=== PATIENT | female | born 1960 | race Caucasian/White ===

== ENCOUNTER → 2018-01-17 | Day surgery (SDC) | payer BC ==
[2018-01-15 10:12] LABS: BASOPHILS # (AUTO) 0.1 (0.0-0.1); BASOPHILS % 0.9 % (0.0-1.0); EOSINOPHILS # (AUTO) 0.3 (0.0-0.4); EOSINOPHILS % 4.6 % (0.0-6.0); HEMOGLOBIN 13.3 g/dL (12.0-16.0); LYMPHOCYTES # (AUTO) 1.4 (1.0-3.2); LYMPHOCYTES % 18.4 % (18.0-39.1); MEAN CORPUSCULAR HEMOGLOBIN 25.6 pg (28-32); MEAN CORPUSCULAR HGB CONC 32.4 g/dL (31-35); MEAN CORPUSCULAR VOLUME 78.8 fL (81-99); MONOCYTES # (AUTO) 0.9 (0.2-0.8); MONOCYTES % 11.4 % (4.4-11.3); NEUTROPHILS # (AUTO) 4.7 (2.1-6.9); NEUTROPHILS % 63.6 % (38.7-80.0); PLATELET COUNT 185 x10e3/uL (140-360); RED CELL DISTRIBUTION WIDTH 13.9 % (11.7-14.4)
[2018-01-15 10:33] LABS: ANION GAP 13.3 mmol/L (8-16); BLOOD UREA NITROGEN 16 mg/dL (7-26); BUN/CREATININE RATIO 19 (6-25); CALCIUM 9.5 mg/dL (8.4-10.2); CARBON DIOXIDE 25 mmol/L (22-29); CHLORIDE 109 mmol/L (98-107); CREATININE, SERUM 0.85 mg/dL (0.57-1.11); EST GLOMERULAR FILTRATION RATE > 60 ML/MIN (60-); GLUCOSE 81 mg/dL (74-118); POTASSIUM 4.3 mmol/L (3.5-5.1); SODIUM 143 mmol/L (136-145)
--- NOTE | 2018-01-15 11:32 | Diagnostic Imaging Report ---
PROCEDURE:CHEST 2 VIEWS TECHNIQUE:PA and lateral chest INDICATION:Preoperative evaluation for foot surgery. COMPARISON:[facility], , CHEST 2 VIEWS, 12/22/2009, 11:30. FINDINGS: Symmetric hyperinflation. Lungs otherwise clear. No pleural effusions. Normal cardiac mediastinal silhouette for technique, with mild elevation of the esha. Intact skeleton. CONCLUSION: Hyperinflation suggesting air trapping from COPD or large inspiration effort. No interval change from December 2009. Dictated by: Dustin Hudson M.D. on 01/15/2018 at 11:34 Electronically approved by: Dustin Hudson M.D. on 01/15/2018 at 11:34
[~2018-01-17] MED LIST: ADVIL PO; BUPIVACAINE HCL 0.5% INJ 30 ML VIAL INJ ONE; CEFAZOLIN SOD 2 GM/D5W 50ML 50 ML IV ONE; DEXAMETHASONE SOD PHOS INJ 4 MG/ML VIAL ONE; ESTRADIOL PO; FENTANYL CITRATE/PF 100MCG/2 ML INJ ONE; HYDROCORTISONE30 GM TOP; LIDOCAINE HCL 2% LOCAL INJ 5 ML SDV VIAL INJ ONE; MEDROXYPROGESTERONE PO; METOCLOPRAMIDE HCL 10 MG/2ML VIAL ONE; MIDAZOLAM HCL 2 MG/2 ML VIAL ONE; MONTELUKAST SOD10 MG PO; MUPIROCIN 2% OINT 22 GM TUBE ONE; ONDANSETRON HCL 4 MG ORAL DISINTEGRATING TAB ONE; ONDANSETRON HCL INJ 2 MG/ML VIAL ONE; PROPOFOL IV EMULSION 10 MG/ML 20 ML VIAL ONE; SEVOFLURANE INHAL SOLN 250 ML PEN BTL ONE
--- OUTSIDE RECORDS SUMMARY | 2018-01-17 07:30 | XMS REPORT | Clinical Summary ---
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 Disp. Refills Start End Date Status Date estradiol (ESTRACE) 1 MG Take 1 mg by mouth once 12 11/29/19 Active tablet daily. 17 medroxyPROGESTERone Take 2.5 mg by mouth once 12 11/29/19 Active (PROVERA) 2.5 MG tablet daily. 17 PREMPRO 0.45-1.5 mg per Take 1 tablet by mouth 5 11/09/19 08/22/20 Discontin tablet once daily. 17 17 ued montelukast (SINGULAIR) Take 10 mg by mouth every 1 12/01/19 Discontin 10 mg tablet evening. 17 17 ued Active Problems No known active problems Encounters Date Type Specialty Care Team Description 11/22/2017 Documentation Sports Medicine Pollo Huerta MD 11/01/2017 Orders Only Sports Medicine Luisa Francis MA Tendinopathy of right rotator cuff (Primary Dx); Disorder of bursa 08/29/2017 Orders Only Orthopedic Surgery Pollo Huerta MD Tendinopathy of rotator cuff, right (Primary Dx); Disorder of bursa 08/29/2017 Transcribe Access Armin Zuniga MD Nontoxic uninodular Orders goiter (Primary Dx) 08/22/2017 Hospital Radiology Armin Zuniga MD Intracranial swelling; Encounter Scooby Cervantes MD Neck mass 08/22/2017 Ancillary Access Armin Zuniga MD Intracranial swelling; Orders Neck mass 08/19/2017 Hospital Radiology Armin Zuniga MD Encounter 08/19/2017 Transcribe Access Armin Zuniga MD Intracranial swelling Orders (Primary Dx); Neck mass 08/19/2017 Ancillary Radiology Armin Zuniga MD Orders 08/19/2017 Ancillary Radiology Armin Zuniga MD Orders after 01/16/2017 Family History Medical History Relation Name Comments Heart disease Mother Leukemia Mother Relation Name Status Comments Mother Social History Tobacco Use Types Packs/Day Years Used Date Never Smoker Alcohol Use Drinks/Week oz/Week Comments Yes 4 Standard 2.4 per year drinks or equivalent Sex Assigned at Date Recorded Not on file Last Filed Vital Signs Vital Sign Reading Time Taken Blood Pressure 132/61 08/22/2017 9:32 AM [facility] Pulse 65 08/22/2017 9:32 AM [facility] Temperature 36.1 C (97 F) 08/22/2017 9:32 AM [facility] Respiratory Rate 18 08/22/2017 9:32 AM [facility] Oxygen Saturation 97% 08/22/2017 9:32 AM [facility] Inhaled Oxygen - - Concentration Weight - - Height - - Body Mass Index - - Plan of Treatment Date Type Specialty Care Team Description 02/07/2018 Appointment Radiology Armin Zuniga MD [address] [place] [address] [address] [place] [address] Health Maintenance Due Date Last Done Comments CERVICAL CANCER SCREENING 01/12/1981 BREAST CANCER SCREENING 01/12/2010 COLON CANCER SCREENING 01/12/2010 SHINGRIX VACCINE (#1) 01/12/2010 INFLUENZA VACCINE 04/02/2018 Results * Cytology (non-gynecological) request (08/22/2017 9:33 AM) Component Value Ref Range Cytology See link below for PDF Lab Report (non-gynecological) report Result status This is Final Report to [id number] Specimen Performing Laboratory [facility] DEPARTMENT OF PATHOLOGY AND GENOMIC MEDICINE [address] [place] [address] * US Thyroid Biopsy (08/22/2017 9:31 AM) Specimen Performing Laboratory [facility] [address] [place] [id number] Narrative US THYROID BIOPSY R22.0 Localized swellingmass and lumphead, R22.1 Localized swelling mass and lumpneck, R22.0 R22.1 STAFF:Dr. Maxime MD ANESTHESIA: Local, 1% lidocaine. FINDINGS: The risk, benefit and alternative were explained to the patient and informed consent was obtained. The patient was placed in the supine position prepped and draped in the usual sterile fashion. All elements of maximal sterile barrier technique were followed. Under ultrasound guidance, the right thyroid nodule was localized. Local anesthetic was applied using 1%lidocaine. The nodule measured 24 mm mm in maximum dimensions and appears heterogeneous. Fine needle aspiration using 25- gauge needle was performed under ultrasound guidance. 4 passes were made and reviewed by the pathologist. The patient tolerated the procedure well and discharged in stable condition. SPECIMEN: 4 FNA passes, reviewed by pathologist. COMPLICATIONS: None. Estimated blood loss: Minimal. IMPRESSION: Status post ultrasound-guided biopsy of right thyroid nodule as described above. 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 Maxime MD ANESTHESIA: Local, 1% lidocaine. FINDINGS: The risk, benefit and alternative were explained to the patient and informed consent was obtained. The patient was placed in the supine position prepped and draped in the usual sterile fashion. All elements of maximal sterile barrier technique were followed. Under ultrasound guidance, the right thyroid nodule was localized. Local anesthetic was applied using 1%lidocaine. The nodule measured 24 mm mm in maximum dimensions and appears heterogeneous. Fine needle aspiration using 25- gauge needle was performed under ultrasound guidance. 4 passes were made and reviewed by the pathologist. The patient tolerated the procedure well and discharged in stable condition. SPECIMEN: 4 FNA passes, reviewed by pathologist. COMPLICATIONS: None. Estimated blood loss: Minimal. IMPRESSION: Status post ultrasound-guided biopsy of right thyroid nodule as described above. [id number] after 01/16/2017 Insurance Payer Benefit Subscriber ID Type Phone Address Plan / Group CYRUS HADLEY xxxxxxxxxxxx PPO BLUE CROSS Home:
--- OUTSIDE RECORDS SUMMARY | 2018-01-17 07:31 | XMS REPORT ---
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 Allergies, Adverse Reactions, Alerts This patient has no known allergies or adverse reactions. Medications This patient has no known medications. Results Test Description Test Time Test Comments Text Results Atomic Results Result Comments CHEST 2 VIEWS [place] [address] Patient Name: FREDDY ALVARADO MR #: [id number] : 1960 Age/Sex: 58/F Req #: [id number] Adm Physician: Ordered by: NATHAN MARSHALL DPM Report #: [id number] Location: OR Room/Bed: Procedure: [id number] DX/CHEST 2 VIEWS Exam Date: 01/15/18 Exam Time: 1013 REPORT STATUS: Signed PROCEDURE: CHEST 2 VIEWS TECHNIQUE: PA and lateral chest INDICATION: Preoperative evaluation for foot surgery. COMPARISON: [facility], , CHEST 2 VIEWS, 12/22/2009, 11: 30. FINDINGS: Symmetric hyperinflation. Lungs otherwise clear. No pleural effusions. Normal cardiac mediastinal silhouette for technique, with mild elevation of the esha. Intact skeleton. CONCLUSION: Hyperinflation suggesting air trapping from COPD or large inspiration effort. No interval change from December 2009. Dictated by: Néstor Hudson M.D. on 01/15/2018 at 11:34 Electronically approved by: Néstor Hudson M.D. on 01/15/2018 at 11:34 Dictated By: NÉSTOR HUDSON MD 1134 Transcribed By: ELFEGO on 01/15/18 1134 COPY TO: NATHAN MARSHALL DPM
--- NOTE | 2018-01-20 00:11 | Operative Report ---
Audio cutting in and out on some portions of the report DATE OF PROCEDURE: January 17, 2018 PREOPERATIVE DIAGNOSES 1. Enlarged plantar flexed, 2nd metatarsal, left foot. 2. Rigidly contracted hammertoe, 2nd and 3rd digits, left foot. 3. 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 4. Rheumatoid nodule, plantar aspect of the left foot. POSTOPERATIVE DIAGNOSES 1. Enlarged plantar flexed, 2nd metatarsal, left foot. 2. Rigidly contracted hammertoe, 2nd and 3rd digits, left foot. 3. 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 4. Rheumatoid nodule, plantar aspect of the left foot. TITLES OF OPERATION 1. Jamari osteotomy of 2nd metatarsal of the left foot. 2. Arthrodesis with proximal interphalangeal joint 2-step implant, 2nd and 3rd digits, left foot. 3. Excision of neuroma 2nd intermetatarsal space, left foot. 4. Neurolysis and excision of rheumatoid nodule, plantar aspect of the left foot. ANESTHESIA: General endotracheal. HEMOSTASIS: A left thigh tourniquet at 350 mmHg with good hemostasis. PROCEDURE IN DETAIL: The patient was taken to the operating room in a mildly sedated state and placed on the operating table in supine position. Following the induction of general anesthetic the left lower extremity was elevated to 60 degrees to exsanguinate before inflating the pneumatic thigh tourniquet at 350 mmHg to create hemostasis. Left lower extremity was placed on the operating table prior to performing the following procedure. Jamari osteotomy of the 2nd metatarsal of the left foot: A linear longitudinal incision made overlying the 2nd metatarsophalangeal joint of left foot. Incision was deepened via sharp and blunt dissection at the level of dorsal capsular structure. Care was taken to identify and retract all vital structures encountered. The head of the 2nd metatarsal was delivered into the surgical site remodeled utilizing an oscillating saw. The osteotomy was placed from dorsal distal down to plantar proximal, which allowed for a relative shift proximally of the head of the more proximal segment, which was then impacted and stabilized with 2 cortical bone screws. The overhanging dorsal leg was then remodeled utilizing a rongeur. The tissues on either side of the joint were noted to be significantly hypertrophic and the tissue underlying the 2nd metatarsal was noted to be very enlarged with a nodular appearance. A McGlamry elevator had been used to release the adhesions of the plantar aspect of the 2nd metatarsal from the underlying tissue. Dissection onto the 2nd intermetatarsal space digital entrapment of the nerve and attempted neurolysis was performed and the nerve appeared to be hypertrophic and enlarged to the extent that excision was required. A large nodule was removed and the underlying adhesions and tissues from the rheumatoid nodule removed as well. The area was irrigated with copious amounts of sterile saline solution. A significant amount of pressure was noted to be relieved from the plantar 2nd metatarsal head after this dissection. After release and irrigation, a TLS drain was installed and the tissues were reapproximated, capsular closure, extensor tendon lengthening and a combination of 3-0 Vicryl, 4-0 nylon. Attention was then directed to the rigidly contracted 2nd and 3rd digits. Linear longitudinal incision made overlying the head of the proximal phalanx with left and right hammertoes, which were resected utilizing the cup and cone reamers accompanying the 2-step implant from [employer]. This having been accomplished, the digital implant was inserted into both the 2nd and 3rd digits separately. Irrigated with copious amounts of sterile saline solution. A press fit was accomplished and release of the underlying contracture was noted to be adequate. Deep closure with 3-0 Vicryl and tendon repair 3-0 Vicryl as well. Skin closure with 4-0 nylon. The areas of surgery were all blocked with 0.5% Marcaine, Decadron [place]. Human tissue allograft was injected to facilitate healing. The release of pneumatic thigh tourniquet showed a normal hyperemic flush to all digits of the left foot and patient left the operating room with vital signs stable and in apparent satisfactory condition, having tolerated both anesthetic and procedure very well. Job#: [id number] CQ MTDUriel
== END | disposition home or self-care (01) ==
LOC: OR 07:29
PROVIDERS: ATTEND Podiatrist Foot Surgery
DX: M06.9 Rheumatoid arthritis, unspecified (principal); M72.2 Plantar fascial fibromatosis; M21.6X2 Other acquired deformities of left foot; M20.42 Other hammer toe(s) (acquired), left foot; G57.62 Lesion of plantar nerve, left lower limb; M19.90 Unspecified osteoarthritis, unspecified site; J31.0 Chronic rhinitis; T78.40XA Allergy, unspecified, initial encounter; N20.0 Calculus of kidney; F41.9 Anxiety disorder, unspecified; F32.9 Major depressive disorder, single episode, unspecified; X58.XXXA Exposure to other specified factors, initial encounter; Z01.810 Encounter for preprocedural cardiovascular examination; Z01.812 Encounter for preprocedural laboratory examination; Z01.818 Encounter for other preprocedural examination
CPT/HCPCS: 28080; 28285 ×2; 28308; 36415; 71046; 80048; 85025; 88304; 93005; C1713 ×2; J1100; J2001; J2250; J2405; J2765; 76001

== ENCOUNTER → 2018-03-21 | Day surgery (SDC) | payer BC ==
[~2018-03-21] MED LIST changes: +BUPIVACAINE HCL 0.5% 10ML MPF VIAL INJ ONE; -BUPIVACAINE HCL 0.5% INJ 30 ML VIAL INJ ONE; +KETOROLAC TROMETHAMINE 30 MG/ML VIAL ONE; -METOCLOPRAMIDE HCL 10 MG/2ML VIAL ONE; +MORPHINE SULFATE 2 MG/ML SYR ONE; -MUPIROCIN 2% OINT 22 GM TUBE ONE; +NEOMYCIN/POLYMYX/BACITR OINT 0.9 GM PKT ONE; -ONDANSETRON HCL 4 MG ORAL DISINTEGRATING TAB ONE; +PROMETHAZINE HCL (IM) 25 MG/ML VIAL ONE; +SCOPOLAMINE 1.5 MG PATCH ONE
--- NOTE | 2018-03-27 23:27 | Operative Report ---
DATE OF PROCEDURE: March 21, 2018 ROOM NUMBER: Outpatient. PREOPERATIVE DIAGNOSES 1. Elongated 2nd metatarsal, plantar flexed, right foot. 2. Rigidly contracted hammertoe 2nd and 3rd digits, right foot. 3. 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 POSTOPERATIVE DIAGNOSES 1. Elongated 2nd metatarsal, plantar flexed, right foot. 2. Rigidly contracted hammertoe 2nd and 3rd digits, right foot. 3. 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 TITLE OF OPERATIONS 1. Elevating osteotomy, Jamari osteotomy, 2nd metatarsal, right foot. 2. Arthrodesis, digits 2 and 3, right foot. 3. Neurolysis, 2nd intermetatarsal space, right foot. ANESTHESIA: General endotracheal. HEMOSTASIS: Right thigh tourniquet at 350 mmHg. PROCEDURE IN DETAIL: The patient was taken to the operating room in a mildly sedated state and placed on the operating table in supine position. Following induction of general anesthetic, the right lower extremity was elevated to 60 degrees to exsanguinate before inflating the pneumatic thigh tourniquet to 350 mmHg for hemostasis. Right lower extremity was placed upon the operating table prior to performing the following procedure. Procedure #1: Jamari osteotomy, 2nd metatarsal of the right foot. Linear longitudinal incision was made overlying the 2nd metatarsophalangeal joint of the right foot. The incision was deepened via sharp and blunt dissection at the level of the dorsal capsular structure. Care was taken to identify and retract all vital structures encountered. The head of the 2nd metatarsal was delivered in the surgical site remodeled utilizing oscillating saw. Kbzymyn-her-dazmilc osteotomy was placed from dorsal distal to plantar proximal to allow for a relative retraction proximally of the head of the more proximal segment, which was then impacted with 2 cortical bone screws. The dorsal aspect was further remodeled after fixation with 2 cortical bone screws. Irrigation and deep closure was 3-0 Vicryl subcutaneous, 4-0 Vicryl, and 4-0 nylon. Attention was then directed to the 2nd intermetatarsal space where a nerve entrapment was noted. Linear longitudinal incision was made overlying the 2nd intermetatarsal space neuroma. Within that neuroma space was a large space-occupying lesion with fibrous attachments and adhesions to the 2nd digital nerve. This was then removed and the underlying tissue inspected, all being within normal limits. The area was irrigated and specimen sent to pathology. A TLS drain was installed. Deep closure was 3-0 Vicryl, 4-0 Vicryl, and 4 nylon. Attention was then directed to the digits 2 and 3 of the right foot. A linear longitudinal incision was made overlying the dorsal aspect of digits 2 and 3 of the right foot. Incision was deepened via sharp and blunt dissection down to the level of dorsal capsular structure. Care was taken to identify and retract all vital structures encountered. Transverse tenotomy was performed at the head of the proximal phalanx. the base of the intermediate phalanx was delivered in the surgical site remodeled utilizing the oscillating saw and rotary bur. The area was then irrigated and a 2-step system was then used to install the hammertoe apparatus both distally and proximally to allow for a good seating of the digit on the implant. The area was then irrigated and closed with 3-0 Vicryl and 4-0 nylon, blocked with 0.5 Marcaine and Decadron LA. The release of the pneumatic thigh tourniquet showed a normal hyperemic flush to all digits of the right foot. TLS drain was then placed and functional. The patient left the operating room, vital signs stable, in apparent satisfactory condition. She will be nonweightbearing on the operative foot until she sees me in the office next week. Job#: [id number]
== END | disposition home or self-care (01) ==
LOC: OR 08:16
PROVIDERS: ATTEND Podiatrist Foot Surgery
DX: M21.271 Flexion deformity, right ankle and toes (principal); M20.41 Other hammer toe(s) (acquired), right foot; G57.61 Lesion of plantar nerve, right lower limb; M19.071 Primary osteoarthritis, right ankle and foot; T78.40XA Allergy, unspecified, initial encounter; X58.XXXA Exposure to other specified factors, initial encounter; Z01.810 Encounter for preprocedural cardiovascular examination
CPT/HCPCS: 28080; 28285 ×2; 28308; 88304; 93005; C1713; J1100; J1885; J2001; J2250; J2405; 76001; J2270; J2550